=== PATIENT | female | born 1965 | race African-American/Black ===

== ENCOUNTER 2017-06-08 07:04 | Day surgery (SDC) | payer OTHER ==
[2017-05-31 10:50] VITALS: BMI 27.4
[2017-06-08] MEDS ORDERED: PROPOFOL 20 ML ONE ×3 (07:17→08:14)
[2017-06-08 08:57] VITALS: PULSE 87
[2017-06-08 09:42] VITALS: BP 107/64; TEMP 98
== END 2017-06-08 09:30 | disposition home or self-care (01) ==
LOC: FASU-ENDO 07:04
PROVIDERS: ATTEND Internal Medicine
PROC: 0DJD8ZZ Inspection of Lower Intestinal Tract, Via Natural or Artificial Opening Endoscopic (ICD-10-PCS; principal; 2017-06-08 08:12)
PROC: 0DJ08ZZ Inspection of Upper Intestinal Tract, Via Natural or Artificial Opening Endoscopic (ICD-10-PCS; 2017-06-08 08:12)
DX: Z12.11 Encounter for screening for malignant neoplasm of colon (principal); K44.9 Diaphragmatic hernia without obstruction or gangrene
CPT/HCPCS: 88305-TC; 88342-TC